=== PATIENT | female | born 1955 | race Caucasian/White ===

== ENCOUNTER 2018-03-05 14:32 | Emergency (ER) | payer BC, SELFPAY ==
[2018-03-05 14:39] VITALS: BP 154/98; PULSE 94; RESP 12; TEMP 36.7; O2SAT 100; BMI 20.4
--- NOTE | 2018-03-05 14:51 | ED.FALL ---
HPI - Fall <Margarita Dumas PA-C - Last Filed: 03/05/18 16:26> General Chief Complaint: Fall Stated Complaint: GLF, SHOULDER PAIN Time Seen by Provider: 03/05/18 14:51 Source: patient Mode of arrival: ambulatory Limitations: no limitations History of Present Illness HPI Narrative: This healthy 62-year-old female tripped over a flower pot and landed on her right shoulder short time prior to arrival. [place] was [place] the [place]. There happened to be a physician present. The shoulder was clearly dislocated and the physician reduced it and advised her to come in and have post reduction films. She denies any other injury such as head contusion, no LOC. Denies spine or other joint pain. She states that initially, her shoulder felt much better (pain after the fall was excruciating), however she realizes now it is still very painful when she tries to move it. She denies any weakness or paresthesia in the arm or hand. She states that pain mainly stays around the shoulder and upper part of the arm. She took some Excedrin prior to arrival and a Xanax Related Data Home Medications Medication Instructions Recorded Confirmed albuterol sulfate [ProAir HFA] 1 puff INHALATION PRN PRN 03/05/18 03/05/18 bupropion HCl 2 tab PO QAM 03/05/18 03/05/18 duloxetine 120 mg PO QAM 03/05/18 03/05/18 montelukast 10 mg PO QPM 03/05/18 03/05/18 simvastatin 10 mg PO QPM 03/05/18 03/05/18 Allergies Allergy/AdvReac Type Severity Reaction Status Date / Time erythromycin base Allergy Verified 03/05/18 14:45 fluoxetine [From Prozac] Allergy Verified 03/05/18 14:45 Sulfa (Sulfonamide Allergy Verified 03/05/18 14:45 Antibiotics) Review of Systems <NEFTALI Rivero Last Filed: 03/05/18 16:26> Review of Systems All systems reviewed & are unremarkable except as noted in HPI and below Exam <NEFTALI Rivero Last Filed: 03/05/18 16:26> Narrative Exam Narrative: GENERAL APPEARANCE: Patient sitting comfortably, in no distress. LUNGS: Clear to auscultation bilaterally. HEART: Rate and rhythm regular without murmur, normal S1 and S2, no S3 or S4. MS: Right shoulder no point tenderness over bony prominences. No tenderness over the upper arm. She holds the shoulder in abduction. We will not attempt range of motion secondary to tenderness. Normal range of motion at the wrist and fingers without tenderness. 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 NEUROVASCULAR: Right hand fingers are warm and pink, normal radial pulse, sensation grossly intact Initial Vital Signs Initial Vital Signs: Vital Signs Temperature 98.1 F 03/05/18 14:39 Pulse Rate 94 H 03/05/18 14:39 Respiratory Rate 12 03/05/18 14:39 Blood Pressure 154/98 H 03/05/18 14:39 Pulse Oximetry 100 03/05/18 14:39 <DO Juan Scanlon Last Filed: 03/05/18 16:38> Initial Vital Signs Initial Vital Signs: Vital Signs Temperature 98.1 F 03/05/18 14:39 Pulse Rate 94 H 03/05/18 14:39 Respiratory Rate 12 03/05/18 14:39 Blood Pressure 154/98 H 03/05/18 14:39 Pulse Oximetry 100 03/05/18 14:39 Course <Margarita Dumas PA-C - Last Filed: 03/05/18 16:26> Orders Ordered: ED Orders 03/05/18 14:51 XR shoulder RT min 2V Stat Discontinued Medications Ibuprofen (Advil) 800 mg PO NOW ONE Stop: 03/05/18 15:13 Last Admin: 03/05/18 15:14 Dose: 800 mg Vital Signs - 8 hr 03/05/18 14:39 Temperature 98.1 F Pulse Rate 94 H Respiratory Rate 12 Blood Pressure 154/98 H Pulse Oximetry 100 <DO Juan Scanlon Last Filed: 03/05/18 16:38> Orders Ordered: ED Orders 03/05/18 14:51 XR shoulder RT min 2V Stat Discontinued Medications Ibuprofen (Advil) 800 mg PO NOW ONE Stop: 03/05/18 15:13 Last Admin: 03/05/18 15:14 Dose: 800 mg Vital Signs - 8 hr 03/05/18 14:39 Temperature 98.1 F Pulse Rate 94 H Respiratory Rate 12 Blood Pressure 154/98 H Pulse Oximetry 100 MDM - Fall <NEFTALI Rivero Last Filed: 03/05/18 16:26> Imaging Data shoulder: Radiologist's impression: View Report History [address] [address] XRay Report Signed Patient: ROSALVA ALLEN MR#: [id number] : 1955 Acct:[id number] Age/Sex: 62 / F Date of Service: 03/05/18 Loc: ED Accession Number: [id number] Procedure: XR shoulder RT min 2V Ordering Provider: Olvin Ponce D.O. PROCEDURE: XR SHOULDER RT MIN 2V INDICATIONS: Post reduction of shoulder dislocation TECHNIQUE: 2 views of the shoulder were acquired. COMPARISON: None. FINDINGS: Bones: Mild to moderate acromioclavicular joint and glenohumeral joint osteoarthritis is seen. No fractures or dislocations. No suspicious bony lesions. Visualized ribs appear intact. Soft tissues: No suspicious soft tissue calcifications. IMPRESSION: No gross acute shoulder fracture or dislocation. Anatomic shoulder alignment. 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 Dictated by: Rocky Quinones M.D. on 03/05/2018 at 15:04 Approved by: Rocky Quinones M.D. on 03/05/2018 at 15:05 Discharge Plan Departure Patient Disposition: Home Clinical Impression: Dislocation closed, shoulder Discharge Date/Time: 03/05/18 15:51 Interventions: ED Discharge Assessment Last Done: 03/05/18 15:49 Instructions: DI for Shoulder Dislocation Activity Restrictions/Additional Instructions: Your shoulder appears to be back in place and there does not appear to be a fracture on the x-ray, however as we talked about all of the soft tissues have been injured as well, so you will likely continue to have some pain. We have given you a sling to wear for comfort. You can rest the shoulder and wear this while you are traveling, however you should do some very gentle [id number] exercises as we talked about a few times a day, such as the pendulum (make sure you bend over and use gravity) and walking or fingers up the wall. This will help you keep normal movement in the shoulder as you recover. Please see your PCP when next week when you are back to assess your progress as you may need repeat x-rays and further evaluation depending upon your progress at that time. (Take the CD copy of your xray that we gave you). You can take 600-800mg of Ibuprofen (Advil, Motrin) every 8 hours with food as needed for pain. You can also add Tylenol as needed Prescriptions: No Action simvastatin 10 mg tablet 10 mg PO QPM RF: 0 montelukast 10 mg tablet 10 mg PO QPM RF: 0 albuterol sulfate [ProAir HFA] 90 mcg/actuation HFA aerosol inhaler 1 puff Inhalation PRN PRN (Reason: Shortness Of Breath) RF: 0 bupropion HCl 150 mg tablet extended release 24 hr 2 tab PO QAM RF: 0 duloxetine 60 mg capsule,delayed release(DR/EC) 120 mg PO QAM RF: 0 Referrals: [facility] [Other] <Olvin Ponce DO - Last Filed: 03/05/18 16:38> [facility] Rosie Attestation: I was available for consultation during this patient's emergency department encounter
[2018-03-05] MEDS: IBUPROFEN 400 MG TABLET 800 MG PO (15:14)
== END 2018-03-05 15:51 | disposition home or self-care (01) ==
PROVIDERS: Emergency Provider Internal Medicine
DX: S43.006A Unspecified dislocation of unspecified shoulder joint, initial encounter (principal); W19.XXXA Unspecified fall, initial encounter
CPT/HCPCS: 73030; 99282; 99283